=== PATIENT | female | born 2000 | race Caucasian/White ===

== ENCOUNTER 2020-06-13 10:13 | Outpatient (CLI) | payer SELFPAY ==
[2020-06-13] MEDS ORDERED: PEPCID AC20 MG PO (10:31)
[2020-06-13] MEDS ORDERED: PRENAVITE1 TAB PO (10:33)
[2020-06-13 11:31] LABS: BILIRUBIN NEGATIVE (NEGATIVE); KETONE SMALL mg/dL (NEGATIVE); NITRITE NEGATIVE (NEGATIVE); UROBILINOGEN NORMAL mg/dL (< 2)
== END 2020-06-13 11:49 | disposition home or self-care (01) ==
LOC: D.LDO 10:13
PROVIDERS: ATTEND Obstetrics & Gynecology
DX: O36.8190 Decreased fetal movements, unspecified trimester, not applicable or unspecified (principal)